=== PATIENT | male | born 1945 | race Caucasian/White ===

== ENCOUNTER → 2018-01-11 08:38 | Outpatient (CLI) | payer OTHER, SELFPAY ==
[2018-01-11 11:51] LABS: BUN Creatinine Ratio 18.2 (6-22); Blood Urea Nitrogen 20 mg/dL (9-20); Calcium 9.3 mg/dL (8.4-10.2); Carbon Dioxide 32 mmol/L (22-32); Chloride 95 mmol/L (98-107); Cholesterol 199 mg/dL (140-199); Estimated Glomerular Filt Rate > 60.0 mL/min (>60); Glucose 106 mg/dL (80-110); HDL Cholesterol 47 mg/dL (40-60); HEMOLYSIS < 15 (0-50); LDL Cholesterol Calculated 122 mg/dL (<100); Potassium 3.9 mmol/L (3.4-5.1); Sodium 137 mmol/L (137-145); Triglycerides 151 mg/dL (35-150)
== END ==
PROVIDERS: PCP Internal Medicine; Visit Provider Internal Medicine
DX: I10 Essential (primary) hypertension (principal); E78.00 Pure hypercholesterolemia, unspecified
CPT/HCPCS: 36415; 80048; 80061

== ENCOUNTER → 2019-01-18 10:10 | Outpatient (CLI) | payer OTHER, SELFPAY ==
[2019-01-18 11:07] LABS: Add Manual Diff / Slide Review NO; Alanine Aminotransferase 19 IU/L (21-72); Albumin 3.9 g/dL (3.5-5.0); Albumin Globulin Ratio 1.4 (1.0-2.8); Alkaline Phosphatase 59 U/L (38-126); Aspartate Aminotransferase 23 IU/L (17-59); BUN Creatinine Ratio 16.7 (6-22); Basophils Absolute Auto 100 /uL (0-100); Basophils Percent Auto 1.4 % (0-2); Bilirubin Total 0.5 mg/dL (0.2-1.3); Blood Urea Nitrogen 15 mg/dL (9-20); Calcium 9.3 mg/dL (8.4-10.2); Carbon Dioxide 31 mmol/L (22-32); Chloride 93 mmol/L (98-107); Eosinophils Absolute Auto 200 /uL (0-450); Eosinophils Percent Auto 2.8 % (2-4); Estimated Glomerular Filt Rate > 60.0 mL/min (>60); Globulin 2.8 g/dL (1.7-4.1); Glucose 94 mg/dL (80-110); HEMOLYSIS < 15 (0-50); Hematocrit 42.1 % (41-53); Hemoglobin 14.9 g/dL (13.5-17.5); Lymphocytes Absolute Auto 1500 /uL (1100-4500); Lymphocytes Percent Auto 22.9 % (25-40); Mean Corpuscular HGB Conc 35.4 % (30-36); Mean Corpuscular Hemoglobin 31.8 PG (26-34); Mean Corpuscular Volume 89.8 fL (80-100); Monocytes Absolute Auto 700 /uL (0-900); Monocytes Percent Auto 10.7 % (3-14); Neutrophils Absolute Auto 4000 /uL (1500-7000); Neutrophils Percent Auto 62.2 % (50-75); Platelet Count 280 X10^3/uL (150-400); Potassium 3.9 mmol/L (3.4-5.1); Red Blood Cell Count 4.68 X10^6/uL (4.5-5.9); Red Cell Distribution Width 13.4 % (11.6-14.8); Sodium 131 mmol/L (137-145); Total Protein 6.7 g/dL (6.3-8.2); White Blood Cell Count 6.4 X10^3/uL (4.5-11.0)
== END ==
PROVIDERS: PCP Internal Medicine; Visit Provider Internal Medicine
DX: I10 Essential (primary) hypertension (principal)
CPT/HCPCS: 36415; 80053; 85025

== ENCOUNTER → 2020-01-02 19:24 | Outpatient (ROUT) | payer OTHER, SELFPAY ==
[2020-01-02 20:03] LABS: Hematocrit 47.1 % (41-53); Hemoglobin 15.8 g/dL (13.5-17.5); Mean Corpuscular HGB Conc 33.5 % (30-36); Mean Corpuscular Hemoglobin 30.5 PG (26-34); Mean Corpuscular Volume 91.3 fL (80-100); Platelet Count 317 X10^3/uL (150-400); Red Blood Cell Count 5.16 X10^6/uL (4.5-5.9); Red Cell Distribution Width 13.6 % (11.6-14.8); White Blood Cell Count 10.1 X10^3/uL (4.5-11.0)
[2020-01-02 20:12] LABS: Alanine Aminotransferase 20 IU/L (<50); Albumin 4.3 g/dL (3.5-5.0); Albumin Globulin Ratio 1.7 (1.0-2.8); Alkaline Phosphatase 66 U/L (38-126); Aspartate Aminotransferase 26 IU/L (17-59); BUN Creatinine Ratio 18.1 (6-22); Bilirubin Total 0.6 mg/dL (0.2-1.3); Blood Urea Nitrogen 19 mg/dL (9-20); Calcium 9.5 mg/dL (8.4-10.2); Carbon Dioxide 30 mmol/L (22-32); Chloride 94 mmol/L (98-107); Estimated Glomerular Filt Rate > 60.0 mL/min (>60); Globulin 2.6 g/dL (1.7-4.1); Glucose 95 mg/dL (80-110); HEMOLYSIS < 15 (0-50); Potassium 4.2 mmol/L (3.4-5.1); Sodium 132 mmol/L (137-145); Total Protein 6.9 g/dL (6.3-8.2)
== END ==
PROVIDERS: PCP Internal Medicine; Visit Provider Internal Medicine
DX: I10 Essential (primary) hypertension (principal)
CPT/HCPCS: 80053; 85027

== ENCOUNTER → 2020-01-18 19:16 | Outpatient (ROUT) | payer OTHER, SELFPAY ==
[2020-01-18 19:49] LABS: Cholesterol 222 mg/dL (140-199); HDL Cholesterol 50 mg/dL (40-60); LDL Cholesterol Calculated 129 mg/dL (<100); Triglycerides 217 mg/dL (35-150)
== END ==
PROVIDERS: PCP Internal Medicine; Visit Provider Internal Medicine
DX: E78.00 Pure hypercholesterolemia, unspecified (principal)
CPT/HCPCS: 80061

== ENCOUNTER 2021-07-24 09:31 | Emergency (ER) | payer OTHER, SELFPAY ==
[2021-07-24] VITALS (11 sets, daily range): BP systolic 184–249; BP diastolic 87–120; PULSE 94–124; RESP 20–33; TEMP 36.6; O2SAT 90–97; BMI 27.3
--- NOTE | 2021-07-24 09:45 | DI.RAD.S_ITS ---
PROCEDURE: XR CHEST 1V INDICATIONS: shortness of breath TECHNIQUE: One view of the chest was acquired. COMPARISON: [facility], , CHEST 1 VIEW, 07/21/2015, 8:34. FINDINGS: Surgical changes and devices: None. Lungs and pleura: There is an indistinct nodular opacity in the right midlung zone. There is hyperinflation of the lungs with flattening of the hemidiaphragms compatible with COPD. No pleural effusions or pneumothorax. Mediastinum: Mediastinal contours appear normal. Heart size is normal. Bones and chest wall: No suspicious bony lesions. Overlying soft tissues appear unremarkable. IMPRESSION: 1. Indistinct nodular opacity in the right mid lung zone. The findings are nonspecific and may represent an infectious or inflammatory process, localized atelectasis, or neoplasm. Recommend short-term follow-up or further evaluation with CT. 2. Findings compatible with COPD. Dictated by: Kiet Rosas M.D. on 07/24/2021 at 10:44 Approved by: Kiet Rosas M.D. on 07/24/2021 at 10:49
--- NOTE | 2021-07-24 10:00 | ED_ITS ---
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 He states he thinks that the COPD exacerbation. He is not on home oxygen. He put himself on Zithromax as and finished it a few days ago. However he still has productive sputum he still short of breath. He is occasionally chilled but denies any fever. He has no dizziness or lightheadedness. He is also compl aining pain in both eyes. He actually lost vision in his left eye has stroke but is having pain in his right eye. He noticed it was red yesterday. He has no drainage from it. Related Data Previous Rx's Medication Instructions Recorded albuterol sulfate 90 mcg/actuation 2 puff INHALATION Q4-6H PRN #8.5 07/24/21 aerosol inhaler gram doxycycline hyclate 100 mg capsule 100 mg PO BID #14 cap 07/24/21 prednisone 20 mg tablet 40 mg PO DAILY #10 tab 07/24/21 Allergies Allergy/AdvReac Type Severity Reaction Status Date / Time pravastatin [PRAVASTATIN] Allergy Severe HIVES Verified 07/24/21 09:40 Review of Systems Review of Systems Narrative: GENERAL: Denies chills, fatigue, malaise, fever, sweats, travel HEENT: +eye pain see HPI sinus pain, ear pain, sore throat, difficulty swallowing, neck pain RESPIRATORY: See HPI CARDIOVASCULAR: Denies chest pain, palpitations, orthopnea, edema GASTROINTESTINAL: Denies nausea, vomiting, abdominal pain, diarrhea, constipation, melena. : Denies dysuria, frequency, incontinence, hematuria, urinary retention, flank pain. MUSCULOSKELETAL: Denies weakness, joint pain, or bony pain SKIN: No rash, no erythema, no pruritus NEUROLOGIC: Denies weakness, dizziness, headache, numbness, change in speech, confusion PSYCHIATRIC: No concerning psychosocial issues. 12 point review of systems is negative except for those stated above and HPI Patient History Social History Smoking Status: Former smoker Smoking Status: Former smoker alcohol intake frequency: 0-2 drinks per day Substance Use Type: does not use Exam Initial Vital Signs Initial Vital Signs: Vital Signs Temperature 97.9 F 07/24/21 09:35 Pulse Rate 124 H 07/24/21 09:35 Respiratory Rate 32 H 07/24/21 09:35 Blood Pressure 249/120 H 07/24/21 09:35 Pulse Oximetry 93 07/24/21 09:35 GENERAL: Alert 75-year-old male no acute distress HEENT: Head atraumatic,EOMI, pupils reactive, face symmetric, moist mucous membranes EYES: EOMI, MCKENNA eyes are stained with fluorescein there is no dye uptake pressure in right eye 13mmHg pressure in left eye 14mmHg CARDIOVASCULAR: Regular rate and rhythm without murmurs, rubs or gallops. RESPIRATORY: Decreased breath sounds bilaterally ABDOMEN: Soft, nontender. Normoactive bowel sounds all 4 quadrants. No guarding or rebound. EXTREMITIES: Normal range of motion, no clubbing or edema. Neurovascularly intact NEUROLOGICAL: Alert and oriented x4.Normal gait and speech. SKIN: Warm, dry, no laceration, no petechiae, no rashes or lesions. Course Orders Ordered: Discontinued Medications Fluorescein Sodium (Fluorescein 1 Mg Strip) 1 mg EYE-BOTH NOW ONE Stop: 07/24/21 11:38 Last Admin: 07/24/21 11:42 Dose: 1 mg Documented by: YAW Methylprednisolone (Methylprednisolone 125 Mg/2 Ml Vial) 125 mg IV NOW ONE Stop: 07/24/21 10:12 Last Admin: 07/24/21 10:18 Dose: 125 mg Documented by: IGNACIA Proparacaine HCl (Proparacaine 0.5% Ophth Hilda) 1 drops EYE-BOTH NOW ONE Stop: 07/24/21 11:38 Last Admin: 07/24/21 11:42 Dose: 1 drops Documented by: YAW Vital Signs Vital signs: Vital Signs - 8 hr 07/24/21 11:30 07/24/21 12:00 07/24/21 12:03 Pulse Rate 95 H 98 H 97 H Respiratory Rate 30 H Blood Pressure 207/98 H 204/91 H Pulse Oximetry 93 95 95 07/24/21 12:30 Pulse Rate 101 H Respiratory Rate 20 Blood Pressure 204/109 H Pulse Oximetry 95 MDM - SOB/Dyspnea Lab Data Result diagrams: 07/24/21 09:53 07/24/21 09:53 Labs: Lab Results 07/24/21 07/24/21 07/24/21 Range/Units 09:48 09:53 09:53 WBC 10.5 (4.5-11.0) X10^3/uL RBC 4.79 (4.5-5.9) X10^6/uL Hgb 14.8 (13.5-17.5) g/dL Hct 42.7 (41-53) % MCV 89.2 (80-100) fL MCH 30.8 (26-34) PG MCHC 34.6 (30-36) % RDW 13.1 (11.6-14.8) % Plt Count 363 (150-400) X10^3/uL Neut % (Auto) 73.4 (50-75) % Lymph % (Auto) 13.3 L (25-40) % [place] % (Auto) 9.8 (3-14) % Eos % (Auto) 2.5 (2-4) % Baso % (Auto) 1.0 (0-2) % Neut # (Auto) 7700 H (5569-5582) /uL Lymph # (Auto) 1400 (4985-0124) /uL [place] # (Auto) 1000 H (0-900) /uL Eos # (Auto) 300 (0-450) /uL Baso # (Auto) 100 (0-100) /uL PT 12.0 (10.1-12.7) SECONDS INR 1.1 (0.9-1.3) Sodium (137-145) mmol/L Potassium (3.4-5.1) mmol/L Chloride (98-107) mmol/L Carbon Dioxide (22-32) mmol/L BUN (9-20) mg/dL Creatinine (0.66-1.25) mg/dL Estimated GFR (>60) mL/min BUN/Creatinine Ratio (6-22) Glucose (80-110) mg/dL Lactate (0.7-2.1) mmol/L Calcium (8.4-10.2) mg/dL Total Bilirubin (0.2-1.3) mg/dL AST (17-59) IU/L ALT (<50) IU/L Alkaline Phosphatase (38-126) U/L Total Creatine Kinase (55-170) U/L CK-MB (CK-2) CK-MB (CK-2) Rel Index Troponin I (0.01-0.034) ng/mL NT-Pro-B Natriuret Pep (<125) pg/mL Total Protein (6.3-8.2) g/dL Albumin (3.5-5.0) g/dL Globulin (1.7-4.1) g/dL Albumin/Globulin Ratio (1.0-2.8) Procalcitonin (<0.5) ng/mL SARS-CoV-2 (PCR) Negative (Negative) 07/24/21 07/24/21 07/24/21 Range/Units 09:53 09:53 09:53 WBC (4.5-11.0) X10^3/uL RBC (4.5-5.9) X10^6/uL Hgb (13.5-17.5) g/dL Hct (41-53) % MCV (80-100) fL MCH (26-34) PG MCHC (30-36) % RDW (11.6-14.8) % Plt Count (150-400) X10^3/uL Neut % (Auto) (50-75) % Lymph % (Auto) (25-40) % [place] % (Auto) (3-14) % Eos % (Auto) (2-4) % Baso % (Auto) (0-2) % Neut # (Auto) (4772-8062) /uL Lymph # (Auto) (4802-7414) /uL [place] # (Auto) (0-900) /uL Eos # (Auto) (0-450) /uL Baso # (Auto) (0-100) /uL PT (10.1-12.7) SECONDS INR (0.9-1.3) Sodium 131 L (137-145) mmol/L Potassium 3.5 (3.4-5.1) mmol/L Chloride 90 L (98-107) mmol/L Carbon Dioxide 33 H (22-32) mmol/L BUN 16 (9-20) mg/dL Creatinine 0.85 (0.66-1.25) mg/dL Estimated GFR > 60.0 (>60) mL/min BUN/Creatinine Ratio 18.8 (6-22) Glucose 151 H (80-110) mg/dL Lactate 2.0 (0.7-2.1) mmol/L Calcium 9.5 (8.4-10.2) mg/dL Total Bilirubin 1.0 (0.2-1.3) mg/dL AST 41 (17-59) IU/L ALT 37 (<50) IU/L Alkaline Phosphatase 77 (38-126) U/L Total Creatine Kinase 89 (55-170) U/L CK-MB (CK-2) TNP CK-MB (CK-2) Rel Index TNP Troponin I < 0.012 (0.01-0.034) ng/mL NT-Pro-B Natriuret Pep 538 H (<125) pg/mL Total Protein 8.3 H (6.3-8.2) g/dL Albumin 4.7 (3.5-5.0) g/dL Globulin 3.6 (1.7-4.1) g/dL Albumin/Globulin Ratio 1.3 (1.0-2.8) Procalcitonin 0.10 (<0.5) ng/mL SARS-CoV-2 (PCR) (Negative) Imaging Data Chest x-ray: Radiologist's Impression: PROCEDURE:? XR CHEST 1V ? INDICATIONS:? shortness of breath ? TECHNIQUE:? One view of the chest was acquired.? ? COMPARISON:? [facility], CHEST 1 VIEW, 07/21/2015, 8:34. ? FINDINGS:? ? Surgical changes and devices:? None.? ? Lungs and pleura:? There is an indistinct nodular opacity in the right midlung zone.? There is hyperinflation of the lungs with flattening of the hemidiaphragms compatible with COPD. ? No pleural effusions or pneumothorax.? ? Mediastinum:? Mediastinal contours appear normal.? Heart size is normal.? ? Bones and chest wall:? No suspicious bony lesions.? Overlying soft tissues appear unremarkable.? ? IMPRESSION:? ? 1. Indistinct nodular opacity in the right mid lung zone.? The findings are nonspecific and may represent an infectious or inflammatory process, localized atelectasis, or neoplasm.? Recommend short-term follow-up or further evaluation with CT. ? 2. Findings compatible with COPD. ? ? ? Dictated by: Kiet Rosas M.D. on 07/24/2021 at 10:44 ? ? ECG Data Interpretation: Sinus tachycardia rate 113 p.r. interval 142 QRS [address] changes or T- wave inversions Q-waves noted in lead 3 only MDM Narrative Medical decision making narrative: Patient is not having any significant difficulty breathing. His O2 does range from 92-94%. He generally does not feel that much better than he did last week. He is given a dose of Solu-Medrol. He is quite concerned about his eye. I did discuss with Ophthalmology Dr. Veras is happy to see patient in clinic this afternoon or if he would like to make an appointment Patient's blood pressure is quite high. It did decrease to the 180s. He says that he has hypertension. He is aware of the risk of stroke. He will monitor his blood pressure is at home. Discharge Plan Departure Patient Disposition: Home Clinical Impression: COPD exacerbation, Eye redness Instructions: Chronic Obstructive Pulmonary Disease Activity Restrictions/Additional Instructions: *You have been diagnosed with COPD exacerbation and red right *What to do: At this time much try steroids and antibiotics to see if it helps your breathing. I did speak with Dr. Veras he is happy to see you today high he also said he may call their office to schedule an appointment *Continue to take medications as directed--> SENT TO [facility] Prednisone 40 mg once a day for 5 days Doxycycline 100 mg twice a day for 7 days Albuterol inhaler 1-2 puffs every 4 hours if needed for shortness of breath *Follow up with your primary care provider in 2-3 days or call [phone] *Return to ER if you should have increasing shortness of breath, chest pain dizziness lightheadedness, visual loss, or any new, worsening or concerning symptoms Prescriptions: New doxycycline hyclate 100 mg capsule 100 mg PO BID Qty: 14 0RF prednisone 20 mg tablet 40 mg PO DAILY Qty: 10 0RF albuterol sulfate 90 mcg/actuation HFA aerosol inhaler 2 puff INHALATION Q4-6H PRN (Reason: shortness of breath or wheezing) Qty: 8.5 0RF Referrals: Zeb Veras MD [Physician] - Luciano Jara MD [Primary Care Provider] -
[2021-07-24 10:09] LABS: Add Manual Diff / Slide Review NO; Basophils Absolute Auto 100 /uL (0-100); Eosinophils Absolute Auto 300 /uL (0-450); Eosinophils Percent Auto 2.5 % (2-4); Hematocrit 42.7 % (41-53); Hemoglobin 14.8 g/dL (13.5-17.5); Lymphocytes Absolute Auto 1400 /uL (1100-4500); Lymphocytes Percent Auto 13.3 % (25-40); Mean Corpuscular HGB Conc 34.6 % (30-36); Mean Corpuscular Hemoglobin 30.8 PG (26-34); Mean Corpuscular Volume 89.2 fL (80-100); Monocytes Absolute Auto 1000 /uL (0-900); Monocytes Percent Auto 9.8 % (3-14); Neutrophils Absolute Auto 7700 /uL (1500-7000); Neutrophils Percent Auto 73.4 % (50-75); Platelet Count 363 X10^3/uL (150-400); Red Blood Cell Count 4.79 X10^6/uL (4.5-5.9); Red Cell Distribution Width 13.1 % (11.6-14.8); White Blood Cell Count 10.5 X10^3/uL (4.5-11.0)
[2021-07-24 10:10] LABS: COVID19 -Nasal RAPID Negative (Negative)
[2021-07-24 10:17] LABS: INR 1.1 (0.9-1.3)
[2021-07-24] MEDS: methylPREDNISolone 125 MG/2 ML VIAL IV (10:18)
[2021-07-24 10:23] LABS: Alanine Aminotransferase 37 IU/L (<50); Albumin 4.7 g/dL (3.5-5.0); Albumin Globulin Ratio 1.3 (1.0-2.8); Alkaline Phosphatase 77 U/L (38-126); Aspartate Aminotransferase 41 IU/L (17-59); BUN Creatinine Ratio 18.8 (6-22); Blood Urea Nitrogen 16 mg/dL (9-20); Calcium 9.5 mg/dL (8.4-10.2); Carbon Dioxide 33 mmol/L (22-32); Chloride 90 mmol/L (98-107); Estimated Glomerular Filt Rate > 60.0 mL/min (>60); Globulin 3.6 g/dL (1.7-4.1); Glucose 151 mg/dL (80-110); HEMOLYSIS 34 (0-50); Potassium 3.5 mmol/L (3.4-5.1); Sodium 131 mmol/L (137-145); Total Protein 8.3 g/dL (6.3-8.2)
[2021-07-24 10:24] LABS: Creatine Kinase 89 U/L (55-170)
[2021-07-24 10:33] LABS: NT-proBNP (BNP-Adult 18+) 538 pg/mL (<125)
[2021-07-24 10:37] LABS: Troponin I < 0.012 ng/mL (0.01-0.034)
[2021-07-24] MEDS: FLUORESCEIN 1 MG STRIP EYE-BOTH (11:42)
[2021-07-24] MEDS: PROPARACAINE 0.5% OPHTH SOL 1 DROPS EYE-BOTH (11:42)
== END 2021-07-24 12:38 | disposition home or self-care (01) ==
PROVIDERS: Emergency Provider Emergency Medicine; PCP Internal Medicine
DX: J44.1 Chronic obstructive pulmonary disease with (acute) exacerbation (principal); H57.89 Other specified disorders of eye and adnexa; Z87.891 Personal history of nicotine dependence; Z20.822 Contact with and (suspected) exposure to COVID-19
CPT/HCPCS: 36415; 71045; 80053; 82550; 83605; 83880; 84145; 84484; 85025; 85610; 87635; 93005; 93010; 96374; 99284; C9803; J2930

== ENCOUNTER → 2021-08-21 11:41 | Outpatient (CLI) | payer OTHER, SELFPAY ==
--- NOTE | 2021-08-21 | DI.CT.S_ITS ---
PROCEDURE: CT CHEST WO CON INDICATIONS: Solitary pulmonary nodule TECHNIQUE: Noncontrast 2.0-2.5 mm thick sections acquired from the pulmonary apices to the posterior costophrenic angles. 7 mm thick axial MIP and 5 mm coronal and sagittal reformats were then acquired. A low radiation dose technique was utilized. COMPARISON: [facility], , CHEST 1 VIEW, 07/21/2015, 8:34. [facility], , XR CHEST 1V, 07/24/2021, 10:14. FINDINGS: Image quality: Diagnostic, given the low radiation dose technique. Lungs and pleura: The lungs have centrilobular emphysematous changes. There is a 3.6 x 1.8 cm masslike opacity in the right middle lobe series 3, image 164 with multiple adjacent smaller satellite nodules/scarring. Similar findings are seen in the right lower lobe and right middle lobe adjacent to the diaphragm consistent with scarring. Mediastinum: Heart size is normal. No pericardial effusion. No mediastinal adenopathy by size criteria. Thoracic aorta and central pulmonary arteries are normal in size. Esophagus is normal in caliber. No hiatal hernia. Bones and chest wall: No suspicious bony lesions. No vertebral body compression fractures. No axillary or supraclavicular adenopathy by size criteria. Thyroid gland is normal. Abdomen: Visualized upper abdomen solid organs and bowel loops appear normal in the absence of contrast. IMPRESSION: 3.6 x 1.8 x 0.7 cm masslike opacity along the pleura in the right middle lobe with multiple adjacent smaller satellite nodules/scarring and similar findings in the right lower lobe and right middle lobe base. The appearance suggests scarring, however cannot exclude neoplasm. Recommend PET scan or follow-up CT in 3 months. Dictated by: Ez Huber M.D. on 08/21/2021 at 13:44 Approved by: Ez Huber M.D. on 08/21/2021 at 13:55
== END ==
PROVIDERS: PCP Internal Medicine; Referring Provider Internal Medicine; Visit Provider Internal Medicine
DX: R91.8 Other nonspecific abnormal finding of lung field (principal)
CPT/HCPCS: 71250

== ENCOUNTER → 2021-11-26 10:38 | Outpatient (CLI) | payer OTHER, SELFPAY ==
--- NOTE | 2021-11-26 | DI.CT.S_ITS ---
PROCEDURE: CT CHEST WO CON INDICATIONS: Solitary pulmonary nodule TECHNIQUE: Noncontrast 5 mm thick sections acquired from the pulmonary apices to the posterior costophrenic angles. 1 mm lung window, 5 mm thick coronal and sagittal and 7 mm axial MIP reformats were then acquired. For radiation dose reduction, the following was used: automated exposure control, adjustment of mA and/or kV according to patient size. COMPARISON: [facility], CT, CT CHEST WO [facility], 08/21/2021, 12:08. FINDINGS: Image quality: Excellent. Lungs and pleura: The previously seen opacity along the lateral aspect of the right middle lobe has resolved. No new masses or suspicious opacities are seen. No acute air space opacities. Mild emphysematous changes are seen. No pleural effusions or pneumothorax. Central and peripheral airways are patent and normal in caliber. A few scattered calcified granulomas can be seen. Mediastinum: Heart size is normal. No pericardial effusion. No mediastinal adenopathy by size criteria. Calcified mediastinal lymph nodes are seen. Thoracic aorta and central pulmonary arteries are normal in size. Atherosclerotic calcification is noted. Esophagus is normal in caliber. There is a moderate hiatal hernia. Bones and chest wall: No suspicious bony lesions. No vertebral body compression fractures. Age-appropriate bony degenerative changes are seen. No axillary or supraclavicular adenopathy by size criteria. Thyroid gland demonstrates no significant noncontrast abnormality. Abdomen: Calcified granulomas can be seen within the spleen. Generalized thickening is seen of the adrenal glands. The visualized portions of the upper abdominal structures are otherwise unremarkable for imaging technique. IMPRESSION: Interval resolution of the previously seen right middle lobe opacity. Incidental note is made of: Atherosclerotic calcification Moderate hiatal hernia Generalized thickening of the adrenal glands Prior granulomatous exposure. Dictated by: Christian Bone M.D. on 11/26/2021 at 11:45 Approved by: Christian Bone M.D. on 11/26/2021 at 11:49
== END ==
PROVIDERS: PCP Internal Medicine; Referring Provider Internal Medicine; Visit Provider Internal Medicine
DX: R91.1 Solitary pulmonary nodule (principal)
CPT/HCPCS: 71250

== ENCOUNTER → 2022-03-25 14:20 | Outpatient (CLI) | payer OTHER, SELFPAY ==
--- NOTE | 2022-03-25 14:21 | DI.US.S_ITS ---
PROCEDURE: US CAROTID DOPPLER BI INDICATIONS: OCCLUDED RT ICA; LT ENDARTERECTOMY 6 YRS AGO TECHNIQUE: Color and pulse Doppler interrogation was performed of both carotid systems, with image documentation and velocity measurements. COMPARISON: [facility], , CAROTID ARTERY DOPPLER BILAT, 05/23/2015, 9:27. FINDINGS: Stenosis calculations are based on SRU (Society of Radiologists in Ultrasound) criteria. Right side: Brachial blood pressure: 232/110 mm Hg. Common carotid artery peak systolic velocity: 53 cm/sec. Internal carotid artery peak systolic velocity: Occluded. External carotid artery peak systolic velocity: 58 cm/sec. Santiago scale imaging description: Heavy scattered plaque. Percent internal carotid artery stenosis: Occlusion of the right internal carotid artery. . Vertebral artery: Flow direction is antegrade. Left side: Brachial blood pressure: 232/111 mm Hg. Common carotid artery peak systolic velocity: 118 cm/sec. Internal carotid artery peak systolic velocity: 86 cm/sec. Internal carotid artery end diastolic velocity: 31 cm/sec. External carotid artery peak systolic velocity: 99 cm/sec. ICA/CCA peak systolic ratio: 0.7 . Santiago scale imaging description: Moderate plaque. Percent internal carotid artery stenosis: Less than 50% . Vertebral artery: Flow direction is antegrade. IMPRESSION: 1. Chronic occlusion of the right internal carotid artery. 2. Less than 50% left internal carotid artery stenosis. 3. Hypertension at time of exam. Dictated by: Ruben Jeter [facility] Interpreted: Jules Colin MD on 03/25/2022 at 15:29 Transcribed by: ELIDA on 03/25/2022 at 15:31 Approved by: Jules Colin M.D. on 03/25/2022 at 22:18
== END ==
PROVIDERS: PCP Internal Medicine; Referring Provider Internal Medicine; Visit Provider Internal Medicine
DX: I65.23 Occlusion and stenosis of bilateral carotid arteries (principal)
CPT/HCPCS: 93880

== ENCOUNTER → 2025-04-16 10:39 | Outpatient (CLI) | payer OTHER, SELFPAY ==
[2025-02-26 11:25] VITALS: BMI 25.1
--- NOTE | 2025-04-16 10:41 | DI.CT.S_ITS ---
PROCEDURE: CT CHEST WO CON INDICATIONS: lung nodule TECHNIQUE: Noncontrast 5 mm thick sections acquired from the pulmonary apices to the posterior costophrenic angles. 1 mm lung window, 5 mm thick coronal and sagittal and 7 mm axial MIP reformats were then acquired. For radiation dose reduction, the following was used: automated exposure control, adjustment of mA and/or kV according to patient size. COMPARISON: [facility], CT, CT CHEST WO CON, 01/09/2025, 10:55. [facility], CT, CT CHEST WO CON, 11/26/2021, 10:47. FINDINGS: Image quality: Diagnostic. Lower Neck: No enlarged lymph nodes. Thyroid: No thyroid nodules which require sonographic follow up, per consensus guidelines. Axillae: No enlarged lymph nodes. Chest Wall: Unremarkable. Bones: Remote prior healed left posterior rib fracture.. Lungs and Pleura: Moderate right pleural effusion is new when compared to the prior exam. There is atelectasis of the adjacent right lung including the area of prior right lower lobe consolidation. No atelectasis or scarring with volume loss in the medial right middle lobe. Moderate centrilobular emphysema. Stable benign calcified granulomas. Linear band like opacity is seen in the posterior left lower lobe in the region of the previously seen pulmonary nodule. No residual nodule is seen. No new or enlarging pulmonary nodule. Heart: Heart size is normal. No pericardial effusion. New left atrial appendage occlusion device. Lipomatous hypertrophy of the intra-atrial septum. Thoracic Vessels: The aorta and pulmonary arteries demonstrate normal size. Moderate aortic atherosclerotic calcifications. Mediastinum and [place]: Precarinal lymph node measures 1.5 cm in short axis diameter (3/41), not significantly changed in retrospect. Small calcified mediastinal and left hilar lymph nodes appear unchanged. Esophagus: No wall thickening. Moderate hiatal hernia. Upper Abdomen: Stable coarse calcifications in the spleen and liver, likely the sequela of prior granulomatous disease. Left renal cyst is partially included. A few diverticula are seen in the colon. IMPRESSION: 1. Moderate right pleural effusion is new when compared to the CT from 01/09/2025, with associated atelectasis that obscures the prior consolidation., possibly a postinfectious/postinflammatory in etiology although malignant effusion cannot be excluded. 2. Mild linear bandlike scarring or atelectasis in the left lower lobe in the region of the previously seen new irregular pulmonary nodule, without residual nodule seen. 3. Mild enlarged nonspecific precarinal lymph node. 4. Moderate centrilobular emphysema. 5. Moderate hiatal hernia. Approved by: Jules Pina M.D. on 04/16/2025 at 12:22
== END ==
PROVIDERS: PCP Physician Assistant; Referring Provider Physician Assistant; Visit Provider Physician Assistant
DX: J90 Pleural effusion, not elsewhere classified (principal); R91.1 Solitary pulmonary nodule; J98.11 Atelectasis; J43.2 Centrilobular emphysema; R59.0 Localized enlarged lymph nodes; K44.9 Diaphragmatic hernia without obstruction or gangrene; I25.10 Atherosclerotic heart disease of native coronary artery without angina pectoris; N28.1 Cyst of kidney, acquired; K57.90 Diverticulosis of intestine, part unspecified, without perforation or abscess without bleeding
CPT/HCPCS: 71250

== ENCOUNTER → 2025-04-20 13:19 | Outpatient (CLI) | payer OTHER, SELFPAY ==
[2025-02-26 11:25] VITALS: BMI 25.1
--- NOTE | 2025-04-20 13:21 | DI.US.S_ITS ---
PROCEDURE: US THORACENTESIS INDICATIONS: Right pleural effusion TECHNIQUE: The indications, alternatives, benefits, risks, and complications of the procedure were explained to the patient. Written informed consent was obtained and placed in the chart. The chest was examined sonographically, and an appropriate site was chosen for thoracentesis. The skin was prepared and draped in the usual sterile fashion, and 1% lidocaine was infiltrated from the skin down through the pleural surface. A 19- gauge catheter-covered needle was then introduced into the pleural space, the catheter was advanced and the needle was withdrawn, and thereafter pleural fluid was aspirated. The catheter was then removed and a dressing was applied. COMPARISON: None. FINDINGS: Access site: Right hemithorax. Needle: One-Step thoracentesis catheter with introducer needle. Fluid volume and description: 1400 mL clear yellow fluid Fluid sent for diagnostic testing: yes as ordered Medications: 1% lidocaine for local anaesthesia. Complications: None IMPRESSION: Successful ultrasound-guided right thoracentesis. Dictated by: David Lieberman M.D. on 04/20/2025 at 14:53 Approved by: David Lieberman M.D. on 04/20/2025 at 14:55
[2025-04-20 14:54] LABS: Body Fluid Tot Nucleated Cells 692 /uL
[2025-04-20 15:30] LABS: Body Fluid Clotted? NO CLOTS PRESENT
[2025-04-20 15:35] LABS: Lymphocytes Body Fluid 84 %; MESO/MACRO/MONO Body Fluid 12 %; Neutrophils Body Fluid 4 %
[2025-04-22 07:36] LABS: Labcorp Amylase, Body Fluid 31 U/L (.); Labcorp Glucose, Body Fluid 115 mg/dL (.); Labcorp Total Prot, Body Fluid 2.3 g/dL (.)
[2025-04-24 05:10] LABS: Labcorp LDH, Body Fluid 87 IU/L (.)
== END ==
LOC: US 13:20
PROVIDERS: Internal Medicine Critical Care Medicine; PCP Physician Assistant; Referring Provider Physician Assistant; Visit Provider Radiology Diagnostic Radiology
DX: J96.11 Chronic respiratory failure with hypoxia (principal); J90 Pleural effusion, not elsewhere classified
CPT/HCPCS: 32555; 82040; 82150; 82945; 83615; 84157; 87070; 87075; 87205; 89051

== ENCOUNTER 2025-04-27 10:10 | Outpatient (CLI) | payer OTHER, SELFPAY ==
[2025-02-26 11:25] VITALS: BMI 25.1
--- NOTE | 2025-04-27 | PATH_ITS ---
Note [facility] Accession Number: [id number] TESTS RESULT FLAG UNITS REF RANGE LAB Clinician Provided Cytology Information No. of containers..01 Other (Miscellaneous) Source: RIGHT PLEURAL EFFUSION DIAGNOSIS: RIGHT PLEURAL EFFUSION, THORACENTESIS. NEGATIVE FOR MALIGNANT CELLS. REACTIVE MESOTHELIAL CELLS ARE PRESENT. THIS INTERPRETATION INCLUDES EVALUATION OF A CELL BLOCK. Pathologist ICD10: 01 J90 Signed out by: Lavon Hunter MD, Pathologist NPI- [id number] Performed by: Hawk Elena, Vulnerability Assessment Analyst ([facility]) Gross description: 60 CC, YELLOW, HAZY RECEIVED: FRESH IN BLUE CAP CONTAINER.VO /VDU 04/30/2025 0829 Local FLAG LEGEND: L-Low Normal,H-High Normal,LL-Alert Low,HH-Alert High <-Panic Low,>-Panic High,A-Abnormal,AA-Critical Abnormal Performed at: 01 =Z [facility] [address] [facility], [place] [address] Kiet Forde MD, Performed at: [address] [facility] [address] [facility], [place], [place] [id number] MD Kiet Forde MD Phone: [phone]
--- NOTE | 2025-04-27 10:11 | DI.US.S_ITS ---
PROCEDURE: US THORACENTESIS INDICATIONS: Pleural effusion, please schedule next day TECHNIQUE: The indications, alternatives, benefits, risks, and complications of the procedure were explained to the patient. Written informed consent was obtained and placed in the chart. The chest was examined sonographically, and an appropriate site was chosen for thoracentesis. The skin was prepared and draped in the usual sterile fashion, and 1% lidocaine was infiltrated from the skin down through the pleural surface. A 19- gauge catheter-covered needle was then introduced into the pleural space, the catheter was advanced and the needle was withdrawn, and thereafter pleural fluid was aspirated. The catheter was then removed and a dressing was applied. COMPARISON: [facility], THORACENTESIS, 04/20/2025, 13:43. FINDINGS: Access site: Right lower hemithorax. Needle: One-Step centesis catheter with introducer needle. Fluid volume and description: 1400 cc, clear straw-colored. Scant debris was seen in the catheter towards the into the procedure. Fluid sent for diagnostic testing: Fluid sent for cytology. Medications: 1% lidocaine for local anaesthesia. Complications: None. The procedure was well tolerated. Tiny pneumothorax on post procedural CT. IMPRESSION: Successful ultrasound-guided right diagnostic and therapeutic thoracentesis. 1.4 L removed. Tiny pneumothorax on post procedural CT. Dictated by: Cheng Acevedo M.D. on 04/27/2025 at 12:18 Approved by: Cheng Acevedo M.D. on 04/27/2025 at 12:24
[2025-04-27 11:00] VITALS: BP 198/92; PULSE 80; RESP 17; O2SAT 99
[2025-04-27 11:09] LABS: INR 1.0 (0.9-1.3); Prothrombin Time 11.2 SECONDS (9.4-12.5)
[2025-04-27 11:15] VITALS: BP 154/82; PULSE 80; RESP 17; O2SAT 99
[2025-04-27 11:17] LABS: Blood Urea Nitrogen 18 mg/dL (9-20); Calcium 9.5 mg/dL (8.4-10.2); Carbon Dioxide 25 mmol/L (22-32); Chloride 102 mmol/L (98-107); Estimated Glomerular Filt Rate > 60 mL/min (>60); Glucose 105 mg/dL (70-99); HEMOLYSIS < 15 (0-50); Potassium 4.2 mmol/L (3.4-5.1); Sodium 136 mmol/L (137-145)
--- NOTE | 2025-04-27 11:17 | DI.CT.S_ITS ---
PROCEDURE: CT CHEST W CON INDICATIONS: Pleural effusion, eval for lung mass TECHNIQUE: After the administration of intravenous contrast, 5 mm thick sections acquired from the pulmonary apices to the posterior costophrenic angles. 1 mm axial lung, 5 mm thick coronal and sagittal reformats and 7 mm axial MIP were acquired. For radiation dose reduction, the following was used: automated exposure control, adjustment of mA and/or kV according to patient size. COMPARISON: [facility], US, US THORACENTESIS, 04/27/2025, 10:49. [facility], CT, CT CHEST WO CON, 04/16/2025, 10:43. FINDINGS: Image quality: Diagnostic. Lower Neck: No enlarged lymph nodes. Thyroid: No thyroid nodules which require sonographic follow up, per consensus guidelines. Axillae: No enlarged lymph nodes. Chest Wall: Unremarkable. Bones: No suspicious osseous lesion. L1 bone island is unchanged. Prior left- sided rib fractures. Lungs and Pleura: Moderate to severe emphysematous changes at the upper lungs. There is secretions at the sally. There is bronchial wall thickening and a few areas of distal mucus airway plugging. No pulmonary mass or significant pulmonary nodules identified. A few benign calcified granulomas. Small opacity at the right major fissure is similar in size and has a platelike atelectatic appearance. Scant opacity in the left lower lobe. Additional bibasilar opacities. Tiny right-sided pneumothorax located in the anterior right mid thorax, (3/228). Status post right thoracentesis. There is scant subcutaneous emphysema at the right posterior chest wall, (3/244). Minuscule right pleural fluid. There is question mild dependent pleural thickening. The previously suspected loculation at the right cardiophrenic angle is not seen. Heart: Heart size is normal. Coronary artery calcifications. Left atrial appendage occlusion device. No pericardial effusion. Scant pericardial fluid is similar. Thoracic Vessels: The aorta and pulmonary arteries demonstrate normal size. Mediastinum and [place]: -Right hilar node measuring 1.4 cm, (2/54), remotely 1.2 cm. Partially calcified. -Calcified subcarinal and left hilar lymph node. These are presumably sequelae of prior granulomatous process. Esophagus: No wall thickening. Small hiatal hernia. Upper Abdomen: Calcified granulomas in the liver and spleen. No adrenal nodule. Left kidney low-density cyst partially visualized. Extensive calcified atherosclerotic plaque. IMPRESSION: 1. Status post ultrasound-guided right thoracentesis for unilateral pleural effusion. Tiny right-sided pneumothorax. Trace right chest wall subcutaneous emphysema. These are within normal limits post procedure. 2. Minuscule residual right pleural fluid. Question trace right pleural thickening. 3. Minimal airspace opacities, for example in the right middle lobe juxta fissural. 4. No mass or significant pulmonary nodules identified. 5. Moderate to severe emphysematous change at the upper lobes. Secretions in the central airway and distal airways. Bronchial wall thickening. Findings in keeping with COPD. 6. Partially calcified right hilar node. Calcified subcarinal and left hilar nodes. These are felt to be the sequelae of prior granulomatous process. Calcified granulomas in the liver and spleen. Recommend clinical correlation in this patient with a history of unilateral pleural effusion. Pending thoracentesis fluid analysis. Follow-up CT chest in 3-6 months would likely be helpful. Dictated by: Cheng Acevedo M.D. on 04/27/2025 at 12:24 Approved by: Cheng Acevedo M.D. on 04/27/2025 at 12:53
[2025-04-27 11:40] VITALS: BP 153/86; PULSE 92; RESP 16; O2SAT 99
== END 2025-04-27 12:45 | disposition home or self-care (01) ==
PROVIDERS: PCP Physician Assistant; Referring Provider Internal Medicine Critical Care Medicine; Visit Provider Internal Medicine Critical Care Medicine
DX: J90 Pleural effusion, not elsewhere classified (principal); I48.91 Unspecified atrial fibrillation; J44.9 Chronic obstructive pulmonary disease, unspecified; I25.10 Atherosclerotic heart disease of native coronary artery without angina pectoris; K44.9 Diaphragmatic hernia without obstruction or gangrene
CPT/HCPCS: 32555; 71260; 80048; 85610; Q9967

== ENCOUNTER 2025-05-04 13:01 | Outpatient (CLI) | payer OTHER, SELFPAY ==
[2025-02-26 11:25] VITALS: BMI 25.1
--- NOTE | 2025-05-04 13:03 | DI.US.S_ITS ---
PROCEDURE: US CHEST COMPARISON: [facility], CT, CT CHEST W CON, 04/27/2025, 11:52. [facility], US THORACENTESIS, 04/27/2025, 10:49. [facility], US THORACENTESIS, 04/20/2025, 13:43. [facility], CT, CT CHEST WO CON, 04/16/2025, 10:43. INDICATIONS: RIGHT PLEURAL EFFUSION-CONSULT FOR THERAPEUTIC THORACENTESIS FINDINGS: Trace right pleural fluid. Insufficient fluid for thoracentesis. IMPRESSION: Trace right pleural fluid. Insufficient fluid for thoracentesis. Procedure was not performed. Discussed with the patient. Dictated by: Cheng Acevedo M.D. on 05/04/2025 at 16:00 Approved by: Cheng Acevedo M.D. on 05/04/2025 at 16:04
[2025-05-04 13:45] VITALS: BP 152/87; PULSE 88; RESP 16; O2SAT 94
== END 2025-05-04 16:23 | disposition home or self-care (01) ==
LOC: US 13:02
PROVIDERS: PCP Physician Assistant; Visit Provider Radiology Diagnostic Radiology
DX: I10 Essential (primary) hypertension (principal)
CPT/HCPCS: 76604

== ENCOUNTER → 2025-05-14 13:05 | Outpatient (CLI) | payer OTHER, SELFPAY ==
[2025-02-26 11:25] VITALS: BMI 25.1
--- NOTE | 2025-05-14 13:06 | DI.US.S_ITS ---
PROCEDURE: US CHEST COMPARISON: [facility], , US CHEST, 05/04/2025, 13:58. INDICATIONS: Right pleural effusion Technique: Ultrasound examination of the pleura. FINDINGS: Small right pleural effusion decreased in size from comparison examination. Distance between the posterior pleural reflection and parietal pleura of the right lower lobe approximately 3 centimeters. Therapeutic thoracentesis was not performed as benefits do not outweigh the risk. IMPRESSION: Small right pleural effusion. Dictated by: Lamberto Santos M.D. on 05/14/2025 at 15:05 Approved by: Lamberto Santos M.D. on 05/14/2025 at 15:06
== END ==
PROVIDERS: PCP Physician Assistant; Referring Provider Radiology Diagnostic Radiology; Visit Provider Radiology Diagnostic Radiology
DX: J90 Pleural effusion, not elsewhere classified (principal)
CPT/HCPCS: 76604